=== PATIENT | female | born 2000 | race American Indian/Alaskan Native ===

== ENCOUNTER 2024-12-23 09:37 | Outpatient (AMB) | payer OTHER, SELFPAY ==
--- NOTE | 2024-12-23 09:40 | MHC.PC.OV ---
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 // PE Request Intake Note: patient here for new patient visit Train System Operator Required: Yes Train System Operator Language: Sales Operations Associate Name: kelley veloz [id number] Information Interpreted: non-clinical & clinical Is last menstrual period known: Yes Last menstrual period: 12/14/24 Post menopausal: No Patient : No Allergies No Known Allergies Allergy (Verified 12/23/24 10:00) Medication List - Last Reconciled 12/23/24 by Baljeet Chowdhury CNP No Known Home Meds Tobacco use date assessed: 12/23/24 Dental Screening Dental Screen Date: 12/23/24 Did you have a dental visit in the last 12 months?: Yes Did you have a dental problem in the last 6 months where you did not have access to dental care?: No Was dental information given to patient?: Patient has dentist HPI HPI Comments History of Present Illness Details 24-year-old Citizen Of [place]-speaking female presents to [facility]. She is not on prescription medication. Prior PCP? - Does not recall name/practice Last office visit/CPE/labs - 2-3 years Acute issue(s) - Reports anxiety symptoms which have been ongoing for the past 5 to 6 years. She feels like she wants to do things and then become anxious about doing those things. Her symptoms have been well controlled the past 1 year. She denies history of psychotropic medications and notes history of psychotherapy. He requests medication treatment for anxiety. No depressive symptoms. Past Medical History - Anxiety Surgical History - None Family History - Mom: Diabetes, substance abuse Social History - Nonsmoker. Does not vape. Does not drink alcohol. Denies recreational drug use - Generally makes unhealthy dietary choices. Active but does not exercise. Difficulty falling and staying asleep, sleep an average of 5-6 hours nightly - She is sexually active, in a monogamous relationship, and has concern for STDs. Denies acute signs and symptoms Health maintenance - Last eye exam was 3 years ago. Referred to Ophthalmology for routine eye exam - Last dental visit was 3 months ago - Last tetanus vaccine was 2 years ago. Record not currently available - Has not been vaccinated for the flu this season; declines vaccination - Last pap smear test was 4 years ago: normal. Referred to [facility] it application support analyst for a pap smear test Specialists None Interpretation by a professional wire rope sales representative via telephone. [facility] Family History (Updated 12/23/24 @ 09:55 by Heather Jurado MA) Mother Diabetes Other Substance abuse Social History Housing: House Patient Tobacco Use Status: Never used Tobacco e-Cigarette/Vaping Use: Never Used Second Hand Smoke Exposure: No service: No Current occupational status: employed Current occupation: [employer] Current occupational exposures/hazards: No Cognitive needs: No Hearing needs: No Vision needs: No Female Reproductive History Menstrual Date of last menstrual period: 12/14/24 Questionnaire PHQ-9 Over the last 2 weeks, how often have you been bothered by any of the following problems? 1. Little interest or pleasure in doing things: not at all 2. Feeling down, depressed, or hopeless: not at all 3. Trouble falling or staying asleep, or sleeping too much: several days 4. Feeling tired or having little energy: nearly every day 5. Poor appetite or overeating: nearly every day 6. Feeling bad about yourself - or that you are a failure or have let yourself or your family down: not at all 7. Trouble concentrating on things, such as reading the newspaper or watching television: not at all 8. Moving or speaking so slowly that other people could have noticed. Or the opposite - being so fidgety or restless that you have been moving around a lot more than usual: not at all 9. Thoughts that you would be better off or of hurting yourself in some way: not at all Total score: 7 Depression Screening Interpretation: Positive Depression Screening Follow-up: Existing condition and New Medication prescribed Depression Screening Done: Yes 79820 - PHQ-9 Billing: Yes Source: Developed by Drs. Ehsan Urena, Maude Foote, Bret Calhoun and colleagues, with an educational dhaavl from [employer]. Thrive Questionnaire Date Thrive assessed: 12/23/24 I am a: Patient What is your living situation today?: I have a steady place to live Within the past 12 months, did the food you bought not last and you didn't have the money to get more?: I choose not to answer this question Within the past 12 months, did you worry whether your food would run out before you got money to buy more?: I choose not to answer this question Do you have trouble paying for medicines?: Yes Do you have trouble getting transportation to medical appointments?: No Do you have trouble paying your heating and electricity bill?: I choose not to answer this question Do you have trouble taking care of your child, family member or friend?: No Do you have trouble with day-to-day activities such as bathing, preparing meals, shopping, managing finances, etc.?: No Are you currently unemployed and looking for a job?: No Are you interested in more education?: Yes Please select the resources that you would like help with: None Currently or been in a relationship where the following occur: I choose not to answer THRIVE Score: 0 AUDIT C Alcohol Use Questionnaire (AUDIT-C) 1. How often do you have a drink containing alcohol?: Never Total Score: 0 Score Reviewed/Action Taken: Yes MARIA LUISA-7 AMB Questionnaire MARIA LUISA-7 Date MARIA LUISA - 7 assessed: 12/23/24 Feeling nervous, anxious, or on edge: 3 = Nearly every day Not being able to stop or control worryin = Several days Worrying too much about different things: 3 = Nearly every day Trouble relaxin = Several days Being so restless that it is hard to sit still: 0 = Not at all Becoming easily annoyed or irritable: 0 = Not at all Feeling afraid as if something awful might happen: 0 = Not at all Total MARIA LUISA-7 score (0-4 normal; 5-9 mild; 10-14 moderate; 15-21 severe): 8 Source: Developed by Drs. Ehsan Urena, Maude Foote, Bret Calhoun and colleagues, with an educational dhaval from [employer]. MARIA LUISA-7 Assessment Billing MARIA LUISA-7 Assessment Tool: MARIA LUISA-7 Assessment 70917 Review of Systems Const Details: Denies chills, Denies fatigue, Denies fever(s), Denies headache(s) and Denies weakness HEENT Denies change in vision, Denies dizziness, Denies headache(s), Denies hearing loss, Denies nasal congestion, Denies sinus pain, Denies sinus pressure and Denies sore throat Card Denies chest pain, Denies lightheadedness, Denies dyspnea and Denies other (palpitations) Resp Denies cough, Denies dyspnea and Denies wheezing GI Denies abdominal pain, Denies melena, Denies hematochezia, Denies change in bowel habits, Denies dyspepsia and Denies nausea Denies hematuria and Denies dysuria Musc Denies abnormal gait, Denies myalgias, Denies arthralgias, Denies numbness and Denies tingling Skin/Breast Denies rash, Denies unusual bruising and Denies wounds Neuro Denies abnormal gait, Denies dizziness, Denies headache(s), Denies memory loss, Denies numbness, Denies Sensory deficit (Neuro), Denies tingling and Denies weakness Psych Reports anxiety, Denies depression and Denies memory loss Endo Denies cold intolerance, Denies fatigue, Denies heat intolerance, Denies polydipsia and Denies polyuria New/Lymph Denies easy bleeding and Denies easy bruising Aller/Immun Denies wheezing Physical exam (Primary Care) Vital Signs: Last Vital Signs Temp 98.5 F 12/23/24 09:48 Pulse 68 12/23/24 09:48 Resp 16 12/23/24 09:48 BP 102/66 12/23/24 09:48 Pulse Ox 98 12/23/24 09:48 Oxygen Delivery Method Room Air 12/23/24 09:48 BMI result Body Mass Index 25.7 Tobacco/Smoking Status: Tobacco use Status Tobacco use date assessed 12/23/24 12/23/24 09:48 Patient Tobacco Use Status Never used Tobacco 12/23/24 09:48 e-Cigarette/Vaping Use Never Used 12/23/24 09:48 PHQ-9: PHQ-9 Score PHQ-9: Total score 7 12/23/24 10:20 Depression Screening Interpretation: Positive Depression Screening Follow-up: Existing condition and New Medication prescribed Thrive Assessment: Date of Thrive Assessment Date Thrive assessed 12/23/24 12/23/24 09:44 Currently or been in a relationship where the following occur: I choose not to answer Const Other: General: no acute distress, well developed, alert and awake Nutritional Appearance: well nourished Orientation/consciousness: patient oriented x3 HENMT Head: Yes normocephalic and Yes atraumatic Ears: hearing grossly normal bilaterally and TM's normal bilaterally General nose exam: Normal external nose present and Normal nares present Mouth: Normal oral and palatal mucosa present and moist mucous membranes Teeth and gingiva: dentition normal Throat: Yes oropharynx normal Eyes Pupils: Equal, round and reactive pupils present and Pupil accommodation reflex normal EOM: EOMs intact bilaterally Neck Neck: Yes normal visual inspection, Yes no lymphadenopathy and Yes trachea midline Thyroid: Thyroid normal Carotids: no bruits Lymphatic: no lymphadenopathy noted Chest Chest palpation & inspection: normal inspection of the chest Resp Effort & Inspection: normal respiratory effort Auscultation: clear to auscultation bilaterally Cardio Rate: regular rate Rhythm: regular rhythm Heart sounds: S1 normal heart sound present, S2 normal heart sound present, no gallops, no murmurs and no rubs Bruits: no abdominal aortic bruits and no carotid bruits GI Palpation (GI): No Abdominal aortic bruit present, Soft to palpation, nontender, No hepatosplenomegaly present and No Rebound tenderness present Auscultation: normal bowel sounds General: Yes no CVA tenderness Back/Spine/Pelvis Back: no CVA tenderness Cervical Spine: cervical ROM normal and No Cervical spine tenderness Thoracic/Lumbar Spine: thoraco-lumbar ROM normal, No pain with thoraco-lumbar ROM, No thoracic spinal tenderness and No lumbar spinal tenderness Skin General: warm and dry. Normal skin color. Normal skin turgor Lesions: no lesions Rashes: no rashes Trauma: no lacerations or abrasions Wounds: no wounds Nails: normal Neuro General: patient oriented x3, gait normal and CN's II-XI intact bilaterally Cranial nerves: Yes Equal, round and reactive pupils present Cognition (Neuro): normal cognition Gait exam (Neuro): Normal gait present Motor exam (neuro): 5/5 motor strength present throughout Sensory Exam: No Sensory deficit (Neuro) Deep tendon reflexes (DTR's): Right patellar reflex intensity grade: 2+ and Left patellar reflex intensity grade: 2+ Extrem General: Yes normal to inspection, No edema and No calf tenderness Psych Appearance: grossly normal Affect: normal affect Attitude: cooperative Thought process: Normal thought process present Coding Level of Care Code New Pt Level 4 (86093) New Pt Prev Care 18-39yr(77291 Diagnoses Normal physical examination, routine Z00.00 Anxiety F41.9 Sleep disturbance G47.9 Screen for STD (sexually transmitted disease) Z11.3 Pap smear for cervical cancer screening Z12.4 Eye exam, routine Z01.00 Laboratory tests ordered as part of a complete physical exam (CPE) Z00.00 Additional Codes MARIA LUISA-7 Assessment Billing - MARIA LUISA-7 Assessment Tool: MARIA LUISA-7 Assessment 85480 ([id number]) PHQ-9 - 56473 - PHQ-9 Billing: Yes ([id number]) Assessment & Plan Assessment & Plan (1) Normal physical examination, routine: Code(s): Z00.00 - Encounter for general adult medical examination without abnormal findings Category: Medical Plan: No significant functional limitation noted. Continue current treatment regimen. Healthy diet and routine exercise encouraged. Follow-up in 1 month for anxiety and labs reviewed. Return sooner with symptoms or concerns. Verbalized understanding and agreed with the treatment plan (2) Anxiety: Code(s): F41.9 - Anxiety disorder, unspecified Category: Medical Plan: Reports anxiety symptoms which have been ongoing for the past 5 to 6 years. She feels like she wants to do things and then become anxious about doing those things. Her symptoms have been well controlled the past 1 year. She denies history of psychotropic medications and notes history of psychotherapy. He requests medication treatment for anxiety. No depressive symptoms. She has trouble falling in staying asleep asleep and average of 5-6 hours nightly. MARIA LUISA-7 in PHQ-9 scores revealed mild anxiety and depression. Will start hydroxyzine 25 mg 3 times daily as needed to target anxiety and sleep disturbance; advised to take as prescribed. May take 50 mg at bedtime for sleep, if skip 1 or 2 doses during the day. Instructed on the risks, benefits, and potential adverse reactions of the medication. Routine exercise encouraged. Follow-up in 1 month or sooner with worsening or new symptoms. Verbalized understanding and agreed with the plan. (3) Sleep disturbance: Code(s): G47.9 - Sleep disorder, unspecified Category: Medical Plan: Plan as above. (4) Screen for STD (sexually transmitted disease): Code(s): Z11.3 - Encounter for screening for infections with a predominantly sexual mode of transmission Category: Medical Plan: She is sexually active, in a monogamous relationship, and has concern for STDs. Denies acute signs and symptoms. Labs ordered for STD screening. (5) Pap smear for cervical cancer screening: Code(s): Z12.4 - Encounter for screening for malignant neoplasm of cervix Category: Medical Plan: Last pap smear test was 4 years ago: normal. Referred to [facility] it application support analyst for a pap smear test. (6) Eye exam, routine: Code(s): Z01.00 - Encounter for examination of eyes and vision without abnormal findings Category: Medical Plan: Last eye exam was 3 years ago. Referred to Ophthalmology for routine eye exam. (7) Laboratory tests ordered as part of a complete physical exam (CPE): Code(s): Z00.00 - Encounter for general adult medical examination without abnormal findings Category: Medical Plan: Fasting labs ordered as part of a complete physical exam. Advised to fast for at least 10 hours before getting labs drawn. May drink water Verbalized understanding and agreed with treatment plan. Orders: Orders Comprehensive [place]. Panel Fast Today Z00.00 - Encounter for general adult medical examination without abnormal findings Syphilis Screen Today Z11.3 - Encounter for screening for infections with a predominantly sexual mode of transmission HIV Ab/Ag Today Z11.3 - Encounter for screening for infections with a predominantly sexual mode of transmission Complete Blood Count Auto Diff Today Z00.00 - Encounter for general adult medical examination without abnormal findings Lipid Panel Today Z00.00 - Encounter for general adult medical examination without abnormal findings Microalbumin, Random (w Creat) Today Z00.00 - Encounter for general adult medical examination without abnormal findings TSH reflex Free T4 Today Z00.00 - Encounter for general adult medical examination without abnormal findings UA CC w/rflx Micro + Cult Today Z00.00 - Encounter for general adult medical examination without abnormal findings Vitamin D 25-OH Total Today Z00.00 - Encounter for general adult medical examination without abnormal findings CT NG by PCR Today Z11.3 - Encounter for screening for infections with a predominantly sexual mode of transmission Hepatitis B,C Profile Today Z11.3 - Encounter for screening for infections with a predominantly sexual mode of transmission Referrals [employer]IAL [employer]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
[2024-12-23 09:48] VITALS: BP 102/66; PULSE 68; RESP 16; TEMP 36.9; O2SAT 98; BMI 25.7
--- OUTSIDE RECORDS SUMMARY | 2024-12-23 10:32 | XMS_ITS | Encounter Summary ---
Author Organization [employer] Address [address] [place] [address] [address] [place] [address] Care Team Providers Care Principal Process Engineer Name Role Phone Unavailable Primary Care Provider Unavailabl e Encounter Details Date Type Department Care Team (Latest Contact Info) Description 12/06/[address] [facility] CONVERSIONS Dental, Provider, DDS Social History Tobacco Use Types Packs/Day Years Used Date Smoking Tobacco: Never Assessed Comments Unknown Sex and Gender Information Value Date Recorded Sex Assigned at Female 05/08/2022 10:33 AM EDT Legal Sex Female 10:33 AM EDT Gender Identity Female 05/08/2022 10:33 AM EDT Sexual Orientation Choose not to disclose 2021 10:33 AM EDT documented as of this encounter Plan of Treatment Not on file documented as of this encounter Visit Diagnoses Not on filedocumented in this encounter
== END 2024-12-23 10:35 | disposition home or self-care (01) ==
LOC: HO.HMCFM 09:38
PROVIDERS: PCP Nurse Practitioner Family; Visit Provider Nurse Practitioner Family
DX: Z00.00 Encounter for general adult medical examination without abnormal findings (principal); F41.9 Anxiety disorder, unspecified; G47.9 Sleep disorder, unspecified; Z11.3 Encounter for screening for infections with a predominantly sexual mode of transmission

== ENCOUNTER 2024-12-23 09:37 | Outpatient (REF) | payer OTHER, SELFPAY ==
[2024-12-23 14:13] LABS: Appearance Urine Turbid; Color Urine Yellow; Glucose Urine UA Negative (Negative); Leukocyte Esterase Urine Negative (Negative); Nitrite Urine Negative (Negative); PH 5.5 (5.0-9.0); Specific Gravity - Urine 1.025 (1.005-1.025); Urine Blood Negative (Negative); Urine Ketones Trace mg/dL (Negative); Urine Protein Negative (Neg-Trace)
[2024-12-23 14:30] LABS: MANUAL DIFF FLAG NO
[2024-12-23 14:34] LABS: Basophils Percent Auto 0.6 % (0-2); Eosinophils Absolute Auto 0.2 X10*3/uL (0.0-0.4); Eosinophils Percent Auto 2.4 % (0-4); Hematocrit 40.3 % (37.0-47.0); Hemoglobin 13.6 g/dl (12.0-16.0); Imm Gran Abs Auto 0.02 X10*3/uL (0.00-0.03); Imm Gran Pct Auto 0.3 % (0.0-0.4); Lymphocytes Absolute Auto 1.4 X10*3/uL (1.2-4.9); Lymphocytes Percent Auto 20.3 % (20-40); Mean Corpuscular HGB Conc 33.7 g/dl (31.0-35.0); Mean Corpuscular Hemoglobin 30.4 pg (27.0-33.0); Monocytes Absolute Auto 0.4 X10*3/uL (0.1-1.2); Monocytes Percent Auto 5.6 % (2-11); Neutrophils Percent Auto 70.8 % (45-73); Platelet Count 271 X10*3/uL (160-400); Red Blood Count 4.48 X10*6/uL (4.20-5.50); Red Cell Distribution Width 12.6 % (11.0-16.0)
[2024-12-23 14:50] LABS: Alanine Aminotransferase 18 U/L (0-31); Alkaline Phosphatase 92 U/L (39-117); Anion Gap 13 (12-20); Aspartate Amino Transferase 24 U/L (5-31); Bilirubin Total 0.5 mg/dL (0.0-1.0); Blood Urea Nitrogen 12 mg/dL (9-16); Calcium 9.6 mg/dL (8.4-10.2); Carbon Dioxide 25 mmol/L (22-29); Chloride 107 mmol/L (96-108); Cholesterol 186 mg/dL (<200); Estimated Glomerular Filt Rate > 60; Glucose Fasting 75 mg/dL (60-99); HDL Cholesterol 42 mg/dL (>40); LDL Cholesterol Calculated 119 mg/dL (<100); Potassium 3.7 mmol/L (3.3-5.1); Sodium 141 mmol/L (135-145); Total Protein 7.6 g/dL (6.5-8.0); Triglycerides 128 mg/dL (<150)
[2024-12-23 14:57] LABS: Creatinine Urine 267.79 mg/dL; Microalbum/Creatinine Ratio Ur 5.6 ug/mg cr (<30)
[2024-12-23 15:05] LABS: TSH reflex Free T4 1.42 uIU/mL (0.32-4.0); Vitamin D 25-OH Total 41.8 ng/mL (>30)
[2024-12-24 02:54] LABS: Syphilis Screen Nonreactive (Nonreactive)
[2024-12-24 06:05] LABS: HBS Num1 > 1000.00 mIU/mL (0-7.99); HBc Num1 0.19 S/CO (0.00-0.79); HBsAGNum1 0.39 S/CO (0.00-0.99); HIV AB/AG Nonreactive (Nonreactive); HIV Num 1 0.07 S/CO (0.00-0.99); Hepatitis B Core Antibody Nonreactive (Nonreactive); Hepatitis B Surface Antigen Negative (Negative); ~HepC Num1 0.29 S/CO (0.00-0.79); ~Hepatitis B Surface Antibody REACTIVE (Nonreactive); ~Hepatitis C Antibody Nonreactive (Nonreactive)
== END 2024-12-23 09:38 | disposition home or self-care (01) ==
LOC: HO.WFDLDS 09:37
PROVIDERS: PCP Nurse Practitioner Family; Visit Provider Nurse Practitioner Family
DX: Z00.01 Encounter for general adult medical examination with abnormal findings (principal); Z11.3 Encounter for screening for infections with a predominantly sexual mode of transmission; Z11.4 Encounter for screening for human immunodeficiency virus [HIV]; F41.9 Anxiety disorder, unspecified; G47.9 Sleep disorder, unspecified
CPT/HCPCS: 36415; 80053; 80061; 81003; 82043; 82306; 82570; 84443; 85025; 86704; 86706; 86780; 86803; 87340; 87389; 96127; 99202; 99385

== ENCOUNTER 2025-01-23 09:51 | Outpatient (AMB) | payer OTHER, SELFPAY ==
--- NOTE | 2025-01-23 09:53 | A.OFFPC_ITS ---
Vital Signs 01/23/25 09:58 Height 5 ft Weight 130 lb 4 oz BMI 25.4 BP 110/61 Blood Pressure Location Lt brachial Position Sitting Respiration 16 Pulse 68 Pulse Source Pulse Oximeter Temp 98.2 F Temp Source Oral Pulse Oximetry (%) 99 Oxygen Delivery Method Room Air Intake Visit Reasons: 1 mos anxiety, labs review Intake Note: patient here for 1 month follow up on anxiety and lab review Senior Sql Dba Required: Yes Senior Sql Dba Language: Sausage Stuffer Name: chago Leo Information Interpreted: non-clinical & clinical Is last menstrual period known: Yes Last menstrual period: 01/10/25 Post menopausal: No Patient : No Allergies No Known Allergies Allergy (Verified 01/23/25 10:10) Medication List - Last Reconciled 01/23/25 by Baljeet Chowdhury CNP hydroxyzine HCl 25 mg PO TID PRN Tobacco use date assessed: 01/23/25 Dental Screening Dental Screen Date: 01/23/25 Did you have a dental visit in the last 12 months?: Yes Did you have a dental problem in the last 6 months where you did not have access to dental care?: No Was dental information given to patient?: Patient has dentist HPI HPI Comments History of Present Illness Details 24-year-old Cameroonian-speaking female pres ents for anxiety and recent labs review follow-up. She admits to taking hydroxyzine as prescribed without adverse reactions. She reports controlled anxiety symptoms. She offers no complaints and denies acute symptoms at this time. Interpretation by a professional marketing researcher via electronic tablet. 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 1. Little interest or pleasure in doing things: not at all 2. Feeling down, depressed, or hopeless: not at all 3. Trouble falling or staying asleep, or sleeping too much: not at all 4. Feeling tired or having little energy: not at all 5. Poor appetite or overeating: not at all 6. Feeling bad about yourself - or that you are a failure or have let yourself or your family down: not at all 7. Trouble concentrating on things, such as reading the newspaper or watching television: not at all 8. Moving or speaking so slowly that other people could have noticed. Or the opposite - being so fidgety or restless that you have been moving around a lot more than usual: not at all 9. Thoughts that you would be better off or of hurting yourself in some way: not at all Total score: 0 Depression Screening Interpretation: Negative Depression Screening Done: Yes 60584 - PHQ-9 Billing: Yes Source: Developed by Drs. Ehsan Urena, Maude Foote, Bret Calhoun and colleagues, with an educational dhaval from [employer]. Thrive Questionnaire Date Thrive assessed: 12/23/24 I am a: Patient What is your living situation today?: I have a steady place to live Within the past 12 months, did the food you bought not last and you didn't have the money to get more?: I choose not to answer this question Within the past 12 months, did you worry whether your food would run out before you got money to buy more?: I choose not to answer this question Do you have trouble paying for medicines?: Yes Do you have trouble getting transportation to medical appointments?: No Do you have trouble paying your heating and electricity bill?: I choose not to answer this question Do you have trouble taking care of your child, family member or friend?: No Do you have trouble with day-to-day activities such as bathing, preparing meals, shopping, managing finances, etc.?: No Are you currently unemployed and looking for a job?: No Are you interested in more education?: Yes Please select the resources that you would like help with: None Currently or been in a relationship where the following occur: I choose not to answer THRIVE Score: 0 MARIA LUISA-7 AMB Questionnaire MARIA LUISA-7 Date MARIA LUISA - 7 assessed: 01/23/25 Feeling nervous, anxious, or on edge: 0 = Not at all Not being able to stop or control worryin = Not at all Worrying too much about different things: 0 = Not at all Trouble relaxin = Not at all Being so restless that it is hard to sit still: 0 = Not at all Becoming easily annoyed or irritable: 0 = Not at all Feeling afraid as if something awful might happen: 0 = Not at all Total MARIA LUISA-7 score (0-4 normal; 5-9 mild; 10-14 moderate; 15-21 severe): 0 Source: Developed by Drs. Ehsan Urena, Maude Foote, Bret Calhoun and colleagues, with an educational dhaval from [employer]. MARIA LUISA-7 Assessment Billing MARIA LUISA-7 Assessment Tool: MARIA LUISA-7 Assessment 73765 Review of Systems Const Details: Const Denies chills, Denies fatigue, Denies fever(s), Denies headache(s) and Denies weakness ENT Denies dizziness and Denies headache(s) Card Denies chest pain, Denies lightheadedness, Denies dyspnea and Denies other (Palpitations) Resp Denies cough, Denies dyspnea, Denies wheezing and Denies other ( shortness of breath) GI Denies abdominal pain, Denies melena, Denies hematochezia, Denies change in bowel habits, Denies dyspepsia and Denies nausea Denies hematuria and Denies dysuria Musc Denies abnormal gait, Denies myalgias, Denies arthralgias, Denies numbness and Denies tingling Skin/Breast Denies rash, Denies unusual bruising and Denies wounds Neuro Denies abnormal gait, Denies dizziness, Denies headache(s), Denies memory loss, Denies numbness, Denies Sensory deficit (Neuro), Denies tingling and Denies weakness Psych Denies anxiety, Denies depression, Denies memory loss Endo Denies cold intolerance, Denies fatigue, Denies heat intolerance, Denies polydipsia and Denies polyuria Aller/Immun Denies wheezing Physical exam (Primary Care) Vital Signs: Last Vital Signs Temp 98.2 F 01/23/25 09:58 Pulse 68 01/23/25 09:58 Resp 16 01/23/25 09:58 BP 110/61 01/23/25 09:58 Pulse Ox 99 01/23/25 09:58 Oxygen Delivery Method Room Air 01/23/25 09:58 BMI result Body Mass Index 25.4 Tobacco/Smoking Status: Tobacco use Status Tobacco use date assessed 01/23/25 01/23/25 10:02 Patient Tobacco Use Status Never used Tobacco 01/23/25 09:56 e-Cigarette/Vaping Use Never Used 01/23/25 09:56 PHQ-9: PHQ-9 Score PHQ-9: Total score 0 01/23/25 10:05 Depression Screening Interpretation: Negative Thrive Assessment: Date of Thrive Assessment Date Thrive assessed 12/23/24 01/23/25 09:56 Currently or been in a relationship where the following occur: I choose not to answer Const Other: General: no acute distress and well developed Nutritional Appearance: well nourished Orientation/consciousness: patient oriented x3 HENMT Head: Yes normocephalic and Yes atraumatic Eyes General: appearance normal, both eyes and all related structures Pupils: Equal, round and reactive pupils present EOM: EOMs intact bilaterally Resp Effort & Inspection: normal respiratory effort Auscultation: clear to auscultation bilaterally Cardio Rate: regular rate Rhythm: regular rhythm Heart sounds: S1 normal heart sound present, S2 normal heart sound present, no gallops, no murmurs and no rubs GI Palpation (GI): No Abdominal aortic bruit present, Soft to palpation, nontender, No hepatosplenomegaly present and No Rebound tenderness present Auscultation: normal bowel sounds General: Yes no CVA tenderness Back/Spine/Pelvis Back: no CVA tenderness Cervical Spine: cervical ROM normal and No Cervical spine tenderness Thoracic/Lumbar Spine: thoraco-lumbar ROM normal, No pain with thoraco-lumbar ROM, No thoracic spinal tenderness and No lumbar spinal tenderness Extrem General: Yes normal to inspection, No edema and No calf tenderness Skin General: warm and dry. Normal skin color. Normal skin turgor Neuro General: patient oriented x3, gait normal and no focal neuro deficit Cranial nerves: Yes Equal, round and reactive pupils present Cognition (Neuro): normal cognition Gait exam (Neuro): Normal gait present Sensory Exam: No Sensory deficit (Neuro) Psych Appearance: grossly normal Affect: normal affect Attitude: cooperative Thought process: Normal thought process present Coding Level of Care Code Est Pt Level 3 (87803) Diagnoses Anxiety F41.9 Elevated LDL cholesterol level E78.00 Additional Codes MARIA LUISA-7 Assessment Billing - MARIA LUISA-7 Assessment Tool: MARIA LUISA-7 Assessment 00752 ([id number]) PHQ-9 - 72135 - PHQ-9 Billing: Yes ([id number]) Assessment & Plan Assessment & Plan (1) Anxiety: Code(s): F41.9 - Anxiety disorder, unspecified Category: Medical Plan: Reports controlled anxiety symptoms. PHQ-9 and MARIA LUISA-7 scores are normal. Continue current treatment regimen. Routine exercise encouraged. Follow-up in 3 months or sooner with worsening or new symptoms. Verbalized understanding and agreed with treatment plan. (2) Elevated LDL cholesterol level: Code(s): E78.00 - Pure hypercholesterolemia, unspecified Category: Medical Plan: Recent LDL level is slightly elevated, 119. Triglycerides, total cholesterol, and HDL levels are normal. Advised to limit foods high in saturated fat and avoid foods high in trans fat. Routine exercise encouraged. Will monitor lipid panel level annually or if present with related symptoms or concerns. Verbalized understanding and agreed with the plan.
[2025-01-23 09:58] VITALS: BP 110/61; PULSE 68; RESP 16; TEMP 36.8; O2SAT 99; BMI 25.4
--- OUTSIDE RECORDS SUMMARY | 2025-01-23 10:03 | XMS_ITS | Encounter Summary ---
Author Organization [employer] Address [address] [place] [address] [address] [place] [address] Care Team Providers Care Monorail Car Operator Name Role Phone Unavailable Primary Care Provider Unavailabl e Encounter Details Date Type Department Care Team (Latest Contact Info) Description 12/06/2018 Abstract [facility] CONVERSIONS Dental, Provider, DDS Social History Tobacco [...]
== END 2025-01-23 10:23 | disposition home or self-care (01) ==
LOC: HO.HMCFM 09:52
PROVIDERS: PCP Nurse Practitioner Family; Visit Provider Nurse Practitioner Family
DX: F41.9 Anxiety disorder, unspecified (principal); E78.00 Pure hypercholesterolemia, unspecified

== ENCOUNTER → 2025-01-23 09:51 | Outpatient (BNVA) | payer OTHER, SELFPAY | PROVIDERS: PCP Nurse Practitioner Family; Visit Provider Nurse Practitioner Family | DX: F41.9 Anxiety disorder, unspecified (principal); E78.00 Pure hypercholesterolemia, unspecified; Z13.31 Encounter for screening for depression; Z13.39 Encounter for screening examination for other mental health and behavioral disorders | CPT/HCPCS: 96127; 99212 ==

== ENCOUNTER 2025-04-27 09:20 | Outpatient (AMB) | payer OTHER, SELFPAY ==
--- NOTE | 2025-04-27 09:21 | MHC.PC.OV ---
Vital Signs 04/27/25 09:25 Height 5 ft Weight 128 lb BMI 25.0 BP 113/71 Blood Pressure Location Rt brachial Position Sitting Respiration 16 Pulse 69 Pulse Source Pulse Oximeter Temp 97.8 F Temp Source Oral Pulse Oximetry (%) 99 Oxygen Delivery Method Room Air Intake Visit Reasons: 3 mos anxiety Intake Note: patient here for 3 month follow up on anxiety Fixed Route Operator Required: No Is last menstrual period known: Yes Last menstrual period: 04/26/25 Post menopausal: No Patient : No Allergies No Known Allergies Allergy (Verified 04/27/25 09:24) Tobacco use date assessed: 04/27/25 Dental Screening Dental Screen Date: 04/27/25 Did you have a dental visit in the last 12 months?: Yes Did you have a dental problem in the last 6 months where you did not have access to dental care?: No Was dental information given to patient?: Patient has dentist HPI HPI Comments History of Present Illness Details 25-year-old female presents for anxiety follow-up. She is mostly Tunisian speaking. She admits to taking hydroxyzine as prescribed without adverse reactions. She reports controlled anxiety symptoms. She reports severe abdominal pain at the beginning of her menstrual cycle. No acute symptoms at this time. 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 1. Little interest or pleasure in doing things: not at all 2. Feeling down, depressed, or hopeless: not at all 3. Trouble falling or staying asleep, or sleeping too much: more than half the days 4. Feeling tired or having little energy: more than half the days 5. Poor appetite or overeating: not at all 6. Feeling bad about yourself - or that you are a failure or have let yourself or your family down: not at all 7. Trouble concentrating on things, such as reading the newspaper or watching television: not at all 8. Moving or speaking so slowly that other people could have noticed. Or the opposite - being so fidgety or restless that you have been moving around a lot more than usual: not at all 9. Thoughts that you would be better off or of hurting yourself in some way: not at all Total score: 4 Depression Screening Interpretation: Negative Depression Screening Done: Yes 02413 - PHQ-9 Billing: Yes Source: Developed by Drs. Ehsan Urena, Maude Foote, Bret Calhoun and colleagues, with an educational dhaval from [employer]. Thrive Questionnaire Date Thrive assessed: 12/23/24 I am a: Patient What is your living situation today?: I have a steady place to live Within the past 12 months, did the food you bought not last and you didn't have the money to get more?: I choose not to answer this question Within the past 12 months, did you worry whether your food would run out before you got money to buy more?: I choose not to answer this question Do you have trouble paying for medicines?: Yes Do you have trouble getting transportation to medical appointments?: No Do you have trouble paying your heating and electricity bill?: I choose not to answer this question Do you have trouble taking care of your child, family member or friend?: No Do you have trouble with day-to-day activities such as bathing, preparing meals, shopping, managing finances, etc.?: No Are you currently unemployed and looking for a job?: No Are you interested in more education?: Yes Please select the resources that you would like help with: None Currently or been in a relationship where the following occur: I choose not to answer THRIVE Score: 0 AUDIT C Alcohol Use Questionnaire (AUDIT-C) 3. How often do you have six or more drinks on one occasion?: Never Total Score: 0 MARIA LUISA-7 AMB Questionnaire MARIA LUISA-7 Date MARIA LUISA - 7 assessed: 04/27/25 Feeling nervous, anxious, or on edge: 0 = Not at all Not being able to stop or control worryin = Not at all Worrying too much about different things: 0 = Not at all Trouble relaxin = Not at all Being so restless that it is hard to sit still: 0 = Not at all Becoming easily annoyed or irritable: 0 = Not at all Feeling afraid as if something awful might happen: 0 = Not at all Total MARIA LUISA-7 score (0-4 normal; 5-9 mild; 10-14 moderate; 15-21 severe): 0 Source: Developed by Drs. Ehsan Urena, Maude Foote, Bret Calhoun and colleagues, with an educational dhaval from [employer]. MARIA LUISA-7 Assessment Billing MARIA LUISA-7 Assessment Tool: MARIA LUISA-7 Assessment 73524 Review of Systems Const Details: Const Denies chills, Denies fatigue, Denies fever(s), Denies headache(s) and Denies weakness ENT Denies dizziness and Denies headache(s) Card Denies chest pain, Denies lightheadedness, Denies dyspnea and Denies other (Palpitations) Resp Denies cough, Denies dyspnea, Denies wheezing and Denies other ( shortness of breath) GI Denies abdominal pain, Denies melena, Denies hematochezia, Denies change in bowel habits, Denies dyspepsia and Denies nausea Denies hematuria and Denies dysuria Musc Denies abnormal gait, Denies myalgias, Denies arthralgias, Denies numbness and Denies tingling Skin/Breast Denies rash, Denies unusual bruising and Denies wounds Neuro Denies abnormal gait, Denies dizziness, Denies headache(s), Denies memory loss, Denies numbness, Denies Sensory deficit (Neuro), Denies tingling and Denies weakness Psych Denies anxiety, Denies depression, Denies memory loss Endo Denies cold intolerance, Denies fatigue, Denies heat intolerance, Denies polydipsia and Denies polyuria Aller/Immun Denies wheezing Physical exam (Primary Care) Tobacco/Smoking Status: Tobacco use Status Tobacco use date assessed 01/23/25 04/27/25 09:23 Patient Tobacco Use Status Never used Tobacco 04/27/25 09:23 e-Cigarette/Vaping Use Never Used 04/27/25 09:23 Depression Screening Interpretation: Negative Thrive Assessment: Date of Thrive Assessment Date Thrive assessed 12/23/24 04/27/25 09:23 Currently or been in a relationship where the following occur: I choose not to answer Const Other: General: no acute distress and well developed Nutritional Appearance: well nourished Orientation/consciousness: patient oriented x3 [facility]: Yes normocephalic and Yes atraumatic Eyes General: appearance normal, both eyes and all related structures Pupils: Equal, round and reactive pupils present EOM: EOMs intact bilaterally Resp Effort & Inspection: normal respiratory effort Auscultation: clear to auscultation bilaterally Cardio Rate: regular rate Rhythm: regular rhythm Heart sounds: S1 normal heart sound present, S2 normal heart sound present, no gallops, no murmurs and no rubs GI Palpation (GI): No Abdominal aortic bruit present, Soft to palpation, nontender, No hepatosplenomegaly present and No Rebound tenderness present Auscultation: normal bowel sounds General: Yes no CVA tenderness Back/Spine/Pelvis Back: no CVA tenderness Cervical Spine: cervical ROM normal and No Cervical spine tenderness Thoracic/Lumbar Spine: thoraco-lumbar ROM normal, No pain with thoraco-lumbar ROM, No thoracic spinal tenderness and No lumbar spinal tenderness Extrem General: Yes normal to inspection, No edema and No calf tenderness Skin General: warm and dry. Normal skin color. Normal skin turgor Neuro General: patient oriented x3, gait normal and no focal neuro deficit Cranial nerves: Yes Equal, round and reactive pupils present Cognition (Neuro): normal cognition Gait exam (Neuro): Normal gait present Sensory Exam: No Sensory deficit (Neuro) Psych Appearance: grossly normal Affect: normal affect Attitude: cooperative Thought process: Normal thought process present Coding Level of Care Code Est Pt Level 3 (17978) Diagnoses Anxiety F41.9 Menstrual pain N94.6 Additional Codes MARIA LUISA-7 Assessment Billing - MARIA LUISA-7 Assessment Tool: MARIA LUISA-7 Assessment 52910 ([id number]) PHQ-9 - 20501 - PHQ-9 Billing: Yes ([id number]) Assessment & Plan Assessment & Plan (1) Anxiety: Code(s): F41.9 - Anxiety disorder, unspecified Category: Medical Plan: Reports controlled anxiety symptoms. PHQ-9 and MARIA LUISA-7 scores are normal. Continue current treatment regimen. Routine exercise encouraged. Follow-up in 3 months or sooner with symptoms or concerns. Verbalized understanding and agreed with the plan. (2) Menstrual pain: Code(s): N94.6 - Dysmenorrhea, unspecified Category: Medical Plan: Reports severe abdominal pain at the beginning of her menstrual cycle. No acute symptoms at this time. Advised to take ibuprofen 600 mg every 6-8 hours as needed and with food. Follow-up as needed. Verbalized understanding and agreed with the plan.
[2025-04-27 09:25] VITALS: BP 113/71; PULSE 69; RESP 16; TEMP 36.6; O2SAT 99; BMI 25.0
--- OUTSIDE RECORDS SUMMARY | 2025-04-27 10:28 | XMS_ITS | Encounter Summary ---
Author Organization [employer] Address [address] [place] [address] [address] [place] [address] Care Team Providers Care Dispensary Technician Name Role Phone Unavailable Primary Care Provider Unavailabl e Encounter Details Date Type Department Care Team (Latest Contact Info) Description 12/06/2018 Abstract [facility] CONVERSIONS Dental, Provider, DDS Social History [...]
--- OUTSIDE RECORDS SUMMARY | 2025-04-27 10:29 | XMS_ITS | Encounter Summary ---
Author Organization [employer] Address [address] [facility] [address] [place] [address] Care Team Providers Care Loan Coordinator Name Role Phone Unavailable Primary Care Provider Unavailabl e Encounter Details Date Type Department Care Team (Late st Contact Info) Description 07/17/2022 Abstract [facility] [address] [place] [address] Henrique Mcguire, PAUL Social History Tobacco Use Types Packs/Day Years Used Date Smoking Tobacco: Never Assessed Comments Unknown Sex and Gender Information Value Date Recorded Sex Assigned at Female 05/08/2022 10:33 AM EDT Legal Sex Female 10:33 AM EDT Gender Identity Female 05/08/2022 10:33 AM EDT Sexual Orientation Choose not to disclose 2021 10:33 AM EDT COVID-19 Exposure Response Date Recorded In the last 10 days, have yo u been in contact with someone who was confirmed or suspected to have Coronavirus/COVID-19? No / Unsure 07/18/2022 2:04 PM EST documented as of this encounter Plan of Treatment Not on file documented as of this encounter Procedures Procedure Name Priority Date/Time Associated Diagnosis Comments 3 O COMPOSITE FILLING Routine 08/05/2019 12:00 AM EST 2 O COMPOSITE FILLING Routine 08/05/2019 12:00 AM EST 18 O COMPOSITE FILLING Routine 9 12:00 AM EDT 19 DI COMPOSITE FILLING Routine 01/24/20 19 12:00 AM EDT 16 EXTRACTION Routine 11/13/2018 12:00 AM EDT 1 EXTRACTION Routine 09/25/2018 12:00 AM EDT 32 EXTRACTION Routine 05/07/2018 12:00 AM EDT 30 O COMPOSITE FILLING Routine 8 12:00 AM EDT 31 O COMPOSITE FILLING Routine 8 12:00 AM EDT 17 EXTRACTION Routine 01/15/2018 12:00 AM EDT documented in this encounter Visit Diagnoses Not on filedocumented in this encounter
--- OUTSIDE RECORDS SUMMARY | 2025-04-27 10:29 | XMS_ITS | Encounter Summary ---
Author Organization [email or web address] Address [address] [place] [address] 7 [place] [address] Care Team Providers Care Manager Of Recruiting Name Role Phone Unavailable Primary Care Provider Unavailabl e Encounter Details Date Type Department Care Team (Latest Contact Info) Description 07/14/2020 Abstract [facility] CONVERSIONS Dental, Provider, DDS Social History [...]
--- OUTSIDE RECORDS SUMMARY | 2025-04-27 10:29 | XMS_ITS | Clinical Summary ---
Author Organization [employer] Address [address] [place] [address] 7[address] [place] [address] Care Team Providers Care Med Surg Rn Name Role Phone Unavailable Primary Care Provider Unavailabl e Allergies No known active allergies Medications multivitamin with minerals (Centrum) 9-200 mg-mcg tablet split tablet Take 1 tablet by mouth. 04/19/2021 Active clindamycin (Clindagel) 1 % gel 11/08/2022 Active Active Problems Problem Noted Date Diagnosed Date Normal oral exam 01/30/2024 Dental plaque 11/14/2022 Social History Tobacco Use Types Packs/Day Years Used Date Smoking Tobacco: Never Smokeless Tobacco: Never Tobacco Cessation:Counseling Given: Not Answered Comments Unknown Sex and Gender Information Value Date Recorded Sex Assigned at Female 05/08/2022 10:33 AM EDT Legal Sex Female 10:33 AM EDT Gender Identity Female 05/08/2022 10:33 AM EDT Sexual Orientation Choose not to disclose 2021 10:33 AM EDT Last Filed Vital Signs Vital Sign Reading Time Taken Comments Blood Pressure 110/66 10/24/2024 3:10 PM EDT Pulse 70 01/30/2024 11:03 AM EDT Temperature - - Respiratory Rate - - Oxygen Saturation - - Inhaled Oxygen Concentration - - Weight - - Height - - Body Mass Index - - Plan of Treatment Health Maintenance Due Date Last Done Comments Depression Screening 1998 HIV Screening 1998 SDOH Screening 1998 Disability Screening 1998 Alcohol/Substance Use Screening 2010 Family Planning (PISQ) 2013 Hepatitis C Screening 02/03/2016 Pap Smear 2019 Hepatitis A Vaccines (2 of 2 - 2-dose series) 02/01/2024 08/03/2023, 09/14/2016 Dental Oral Exam 08/02/2024 01/30/2024, 03/2023, 11/14/2022 Dental X-Ray: Bitewings 01/30/2025 01/30/2024, 11/14 COVID-19 Vaccine ( - season) 2025 05/02/2021, 04/11/2021 Influenza Vaccine (#1) 2025 , 05/17/2021, 05/17/2021, Additional history exists Dental Prophylaxis 04/26/2025 10/24/2024, 0 01/30/2024, 11/14/2022 Tobacco Screening 10/24/2025 10/24/2024 Dental X-Ray: Full Mouth 01/30/2027 01/30/2024, 09/06 DTaP/Tdap/Td Vaccines (5 - Td or Tdap) 05/24/2033 05/24/2023, 09/14/2016, 10/14/2015, Additional history exists Zoster Vaccines (1 of 2) 02/03/2048 RSV Patients and Patients Aged 60 years or older (1 - 1-dose 75+ series) 2073 Meningococcal Vaccine Completed 08/31/2015 HPV Vaccines Completed 04/19/2021, 04/08, 10/26/2020, Additional history exists Hepatitis B Vaccines Completed 08/03/2023, 09/14/2016, 08/31/2015 HIB Vaccines Aged Out No longer eligi ble based on patient's age to complete this topic IPV Vaccines Aged Out No longer eligi ble based on patient's age to complete this topic Meningococcal B Vaccine Aged Out No l onger eligible based on patient's age to complete this topic Pneumococcal Vaccine: Pediatrics (0 to 5 Years) and At-Risk Patients (6 to 49) Years Aged Out No longer eligible based on patient's age to complete this topic RSV under 20 months Aged Out No longe r eligible based on patient's age to complete this topic Rotavirus Vaccines Aged Out No longer eligible based on patient's age to complete this topic Procedures Procedure Name Priority Date/Time Associated Diagnosis Comments PROPHYLAXIS - ADULT Routine 10/24/2024 3 :00 PM EDT Dental plaque INTRAORAL - COMPLETE SERIES OF RADIOGRAPHIC IMAGES Routine 01/30/2024 11:00 AM EDT Dental plaque PERIODIC ORAL EVALUATION - ESTABLISHED PATIENT Routine 01/30/2024 11:00 AM EDT from Last 3 Months or Most Recently Relevant to Health Maintenance Insurance DENTAL-[facility] MEDICAID LIMITED ADULT DENTAL - HSN FULL (MEDICAID)
== END 2025-04-27 14:01 | disposition home or self-care (01) ==
LOC: HO.HMCFM 09:20
PROVIDERS: PCP Nurse Practitioner Family; Visit Provider Nurse Practitioner Family
DX: F41.9 Anxiety disorder, unspecified (principal); N94.6 Dysmenorrhea, unspecified

== ENCOUNTER → 2025-04-27 09:20 | Outpatient (BNVA) | payer OTHER, SELFPAY | PROVIDERS: PCP Nurse Practitioner Family; Visit Provider Nurse Practitioner Family | DX: F41.9 Anxiety disorder, unspecified (principal); N94.6 Dysmenorrhea, unspecified; Z13.31 Encounter for screening for depression; Z13.39 Encounter for screening examination for other mental health and behavioral disorders | CPT/HCPCS: 96127; 99212 ==

== ENCOUNTER 2025-05-01 13:52 | Outpatient (REF) | payer OTHER, SELFPAY ==
[2025-05-02 03:34] LABS: Syphilis Screen Nonreactive (Nonreactive)
[2025-05-02 04:04] LABS: HBsAGNum1 0.32 S/CO (0.00-0.99); HIV Num 1 0.06 S/CO (0.00-0.99); Hepatitis B Surface Antigen Negative (Negative); ~HepC Num1 0.18 S/CO (0.00-0.79); ~Hepatitis C Antibody Nonreactive (Nonreactive)
[2025-05-02 05:17] LABS: Bacterial Vaginosis PCR NEGATIVE (Negative); Candida Group PCR DETECTED (Not Detect); Candida glab krusei PCR NOT DETECTED (Not Detect); Trichomonas vaginalis PCR NOT DETECTED (Not Detect)
[2025-05-02 05:47] LABS: CT PCR NOT DETECTED (Not Detect.); NG PCR NOT DETECTED (Not Detect.)
== END 2025-05-01 13:53 | disposition home or self-care (01) ==
LOC: HO.LAB 13:52
PROVIDERS: PCP Nurse Practitioner Family; Visit Provider Advanced Practice Midwife
DX: Z01.419 Encounter for gynecological examination (general) (routine) without abnormal findings (principal); Z00.00 Encounter for general adult medical examination without abnormal findings; Z20.2 Contact with and (suspected) exposure to infections with a predominantly sexual mode of transmission; Z30.09 Encounter for other general counseling and advice on contraception; Z11.4 Encounter for screening for human immunodeficiency virus [HIV]; Z11.59 Encounter for screening for other viral diseases; L30.9 Dermatitis, unspecified
CPT/HCPCS: 36415; 81515; 86780; 86803; 87340; 87389; 87491; 87591; 88175; 99385

== ENCOUNTER 2025-05-01 13:52 | Outpatient (AMB) | payer OTHER, SELFPAY ==
--- NOTE | 2025-05-01 14:02 | MHC.OFFVIS ---
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 annual exam Intake Note: here for Television Picture Tube Rebuilder annual Emergency Communications Dispatcher Required: Yes Emergency Communications Dispatcher Services: Emergency Communications Dispatcher Present (voice machine) Information Interpreted: non-clinical & clinical Spice Cleaner: Spice Cleaner Present (gracia) Accompanied by: Self / Same As Patient Allergies No Known Allergies Allergy (Verified 05/01/25 14:05) Medication List - Last Reconciled 05/01/25 by Verito Talbert LPN hydroxyzine HCl 25 mg PO TID PRN Is last menstrual period known: Yes Last menstrual period: 04/23/25 Do you need a note to return to daycare/school/sports/work: No HPI HPI OPERATIONS REPRESENTATIVE annual exam: Details: 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 She is not currently sexually active and if she became sexually active she would go back to using the NuvaRing which she liked and worked well for her. The last time she had sex with someone was about 6 months ago and it was a little bit uncomfortable and that had not happen before she is no longer with that person an that was a new relationship at the time. Also she has had some itching on her nipples the left 1 and when she scratches it then she ends up with a rash. She does not think she has high blood sugar as far she knows her parents are diabetic. She knows she has high cholesterol. She says her periods are irregular sometimes they come on different dates but she does not actually keep track on a calendar. 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 Current occupational exposures/hazards: No Cognitive needs: No Hearing needs: No Vision needs: No Female Reproductive History Menstrual Age of Menarche: 11 Date of last menstrual period: 04/23/25 control method: abstinence Total pregnancies: 0 Number of Living Children: 0 Physical Exam Vital Signs: Last Vital Signs BP 112/64 05/01/25 14:08 BMI result Body Mass Index 24.8 Const General: healthy appearing, comfortable, no acute distress, well developed and alert Nutritional Appearance: average body habitus Orientation/consciousness: patient oriented x3 Limitations: no limitations HEENT Head: Yes normocephalic Neck Neck: Yes normal visual inspection Chest Other: Normal exam of breasts and nipples no peau d'orange no rash no breaks in the skin or discolorations notable in either nipple. Chest palpation & inspection: normal inspection of the chest Breast/axilla inspection: normal inspection of the breasts and normal inspection of the axillae Breast/axilla palpation: normal palpation of the breasts and normal palpation of the axillae Resp Effort & Inspection: normal respiratory effort GI Inspection: Yes normal to inspection, No Abdominal wall edema and No distended Palpation (GI): Soft to palpation and nontender Other: Vagina is pink and moist normal-appearing scant white mucus cervix nulliparous pink smooth slightly friable with Pap Pap and testing done for infection. Cervix long close thick mobile nontender uterus midposition nontender was not able to reproduce the discomfort that she described with dyspareunia some 6 months ago. Adnexa not enlarged and nontender very good muscle tone. General: Yes bladder normal to palpation External Female Exam: normal external appearance and normal appearance of the urethra Speculum Exam - Vagina: normal appearance of the vagina, normal palpation and normal vaginal discharge Speculum Exam - Cervix: normal appearance of the cervix, normal palpation and nontender Bimanual exam- vagina & uterus: normal bimanual exam, normal palpation, uterine size normal, bladder normal to palpation, consistency normal, normal palpation, uterine mobility normal, uterine shape normal, No Cervical tenderness present, non-tender and no cervical motion tenderness Bimanual Exam- Adnexa, other: normal adnexae, no masses, normal and No adnexal tenderness Neuro General: patient oriented x3 Assessment & Plan Assessment & Plan (1) Pap smear for cervical cancer screening: Code(s): Z12.4 - Encounter for screening for malignant neoplasm of cervix Category: Medical (2) Well woman exam with routine gynecological exam: Code(s): Z01.419 - Encounter for gynecological examination (general) (routine) without abnormal findings Category: Medical (3) Nipple dermatitis: Comment: No visible issue today will offer treatment with Lotrisone cream to be used sparingly if itching recurs and if it is not helpful to seek another visit for follow-up. Code(s): L30.9 - Dermatitis, unspecified Category: Medical (4) control counseling: Comment: We will Rx NuvaRing that she may start at the beginning of a menses if she anticipates becoming sexually active.... Code(s): Z30.09 - Encounter for other general counseling and advice on contraception Category: Medical (5) Screen for sexually transmitted diseases: Code(s): Z11.3 - Encounter for screening for infections with a predominantly sexual mode of transmission Category: Medical Plan -----Discussed in this visit the following: healthy balanced diet, regular and consistent exercise, getting recommended health screens, doing the best she can for her particular health concerns, kegel exercises, pap smear screening and followup recommendations, mammography screening and SBE, normal changes in cycles in her life stage--- . She would like the ring that she could start if she did become sexually active. She does not plan to start it right now but it would be good for her to have it on hand so I am prescribing enough for her year for her as she has used it successfully in the past. My instructions would be for her to start it at the beginning of a period within the 1st 3 days. She is a nonsmoker and is otherwise healthy I am also ordering testing for her to get blood work for STIs screening which she is interested in. I also gave her information about the portal so she can look up her own results we will send her a letter about the Pap smear. For the itching and a her nipple I do not see any evidence of a rash or discharge or pathology. Just given the wrinkled nature of her nipples it is certainly possible that perhaps some microscopic yeast could be harboring within the crevices and folds of the skin at the nipple. It is not even very symptomatic at the present moment but I sending a prescription for 1 tube of Lotrisone cream combination antifungal and steroid cream to use extremely sparingly if needed up to twice a day but not for a long time at all and she may save that for another situation as well. Orders: Orders CT NG by PCR Vag/Cerv Today Z01.419 - Encounter for gynecological examination (general) (routine) without abnormal findings, Z11.3 - Encounter for screening for infections with a predominantly sexual mode of transmission, Z12.4 - Encounter for screening for malignant neoplasm of cervix, Z30.09 - Encounter for other general counseling and advice on contraception Bacterial Vaginosis Panel Today Z01.419 - Encounter for gynecological examination (general) (routine) without abnormal findings, Z11.3 - Encounter for screening for infections with a predominantly sexual mode of transmission, Z12.4 - Encounter for screening for malignant neoplasm of cervix, Z30.09 - Encounter for other general counseling and advice on contraception HIV Ab/Ag Today Z01.419 - Encounter for gynecological examination (general) (routine) without abnormal findings, Z11.3 - Encounter for screening for infections with a predominantly sexual mode of transmission, Z12.4 - Encounter for screening for malignant neoplasm of cervix, Z30.09 - Encounter for other general counseling and advice on contraception Hepatitis B Surface Antigen Today Z01.419 - Encounter for gynecological examination (general) (routine) without abnormal findings, Z11.3 - Encounter for screening for infections with a predominantly sexual mode of transmission, Z12.4 - Encounter for screening for malignant neoplasm of cervix, Z30.09 - Encounter for other general counseling and advice on contraception Syphilis Screen Today Z01.419 - Encounter for gynecological examination (general) (routine) without abnormal findings, Z11.3 - Encounter for screening for infections with a predominantly sexual mode of transmission, Z12.4 - Encounter for screening for malignant neoplasm of cervix, Z30.09 - Encounter for other general counseling and advice on contraception Pap Smear Today Z00.00 - Encounter for general adult medical examination without abnormal findings Hepatitis C Antibody Today Z01.419 - Encounter for gynecological examination (general) (routine) without abnormal findings, Z11.3 - Encounter for screening for infections with a predominantly sexual mode of transmission, Z12.4 - Encounter for screening for malignant neoplasm of cervix, Z30.09 - Encounter for other general counseling and advice on contraception Medications: New etonogestrel-ethinyl estradiol 0.12-0.015 mg/24 hr Start at the beginning of a menses, leave in place for 3 weeks of a 4-week cycle 1 vag ring vaginal Q4W 3 ea 4RF clotrimazole-betamethasone 1-0.05 % 1 appl topical BID 45 grams 0RF 2 weeks Coding Level of Care Code New Pt Prev Care 18-39yr(01110 Diagnoses Pap smear for cervical cancer screening Z12.4 Well woman exam with routine gynecological exam Z01.419 Nipple dermatitis L30.9 control counseling Z30.09 Screen for sexually transmitted diseases Z11.3
[2025-05-01 14:08] VITALS: BP 112/64; BMI 24.8
--- OUTSIDE RECORDS SUMMARY | 2025-05-01 15:53 | XMS_ITS | Encounter Summary ---
Author Organization [employer] Address [address] [place] [address] [address] [place] [address] Care Team Providers Care Oil Well Gun Perforator Operator Name Role Phone Unavailable Primary Care Provider Unavailabl e Encounter Details Date Type Department Care Team (Latest Contact Info) Description 12/06/2018 Abstract [facility] CONVERSIONS Dental, Provider, DDS Social History [...]
--- OUTSIDE RECORDS SUMMARY | 2025-05-01 15:53 | XMS_ITS | Clinical Summary ---
Author Organization [employer] Address [address] [place] [address] [address] [place] [address] Care Team Providers Care Casing Man Name Role Phone Unavailable Primary Care Provider [...] Most Recently Relevant to Health Maintenance Insurance D[facility]AL-[facility] MEDICAID LIMITED ADULT DENTAL - HSN FULL (MEDICAID)
--- OUTSIDE RECORDS SUMMARY | 2025-05-01 15:53 | XMS_ITS | Encounter Summary ---
Author Organization [employer] Address [address] [place] [address] 7 [place] [address] Care Team Providers Care Paper Wood Cutter Name Role Phone Unavailable Primary Care Provider Unavailabl e Encounter Details Date Type Department Care Team (Latest Contact Info) Description 07/14/2020 Abstract [facility] CONVERSIONS Dental, Provider, DDS Social History [...]
--- OUTSIDE RECORDS SUMMARY | 2025-05-01 15:53 | XMS_ITS | Encounter Summary ---
Author Organization [employer] Address [address] [facility] 7t [place] [address] Care Team Providers Care Organizational Effectiveness Director Name Role Phone Unavailable Primary Care Provider Unavailabl e Encounter Details Date Type Department Care Team (Late st Contact Info) Description 07/17/2022 Abstract [facility] [address] [place] [address] Henrique Mcguire, PAUL Social History Tobacco Use [...]
== END 2025-05-01 15:17 | disposition home or self-care (01) ==
LOC: HO.HWS 13:53
PROVIDERS: PCP Nurse Practitioner Family; Visit Provider Advanced Practice Midwife
DX: Z01.419 Encounter for gynecological examination (general) (routine) without abnormal findings (principal); L30.9 Dermatitis, unspecified; Z30.09 Encounter for other general counseling and advice on contraception; Z11.3 Encounter for screening for infections with a predominantly sexual mode of transmission
CPT/HCPCS: 99385; 99459

== ENCOUNTER 2025-06-02 08:00 | Outpatient (AMB) | payer OTHER, SELFPAY ==
--- OUTSIDE RECORDS SUMMARY | 2025-06-02 08:13 | XMS_ITS | Encounter Summary ---
Author Organization [employer] Address [address] [facility] 7t [place] [address] Care Team Providers Care Geospatial Engineer Name Role Phone Unavailable Primary Care Provider Unavailabl e Encounter Details Date Type Department Care Team (Late st Contact Info) Description 07/17/2022 Abstract [facility] [address] [place] [address] Henrique Mcguire, PAUL Social History Tobacco Use [...]
--- OUTSIDE RECORDS SUMMARY | 2025-06-02 08:13 | XMS_ITS | Encounter Summary ---
Author Organization [employer] Address [address] [place] [address] 7 [place] [address] Care Team Providers Care Electrical Line Splicer Name Role Phone Unavailable Primary Care Provider Unavailabl e Encounter Details Date Type Department Care Team (Latest Contact Info) Description 12/06/2018 Abstract [facility] CONVERSIONS Dental, Provider, DDS Social History [...]
--- OUTSIDE RECORDS SUMMARY | 2025-06-02 08:13 | XMS_ITS | Encounter Summary ---
Author Organization [employer] Address [address] [place] [address] [address] [place] [address] Care Team Providers Care In Store Demonstrator Name Role Phone Unavailable Primary Care Provider Unavailabl e Encounter Details Date Type Department Care Team (Latest Contact Info) Description 07/14/2020 Abstract [facility] CONVERSIONS Dental, Provider, DDS Social History [...]
--- OUTSIDE RECORDS SUMMARY | 2025-06-02 08:13 | XMS_ITS | Clinical Summary ---
Author Organization [employer] Address [address] [place] [address] [address] [place] [address] Care Team Providers Care Financial Cost Analyst Name Role Phone Unavailable Primary Care Provider [...] Most Recently Relevant to Health Maintenance Insurance DENTAL-[facility] MEDICAID LIMITED ADULT DENTAL - HSN FULL (MEDICAID)
--- NOTE | 2025-06-02 08:16 | A.OFFVIS_ITS ---
Vital Signs 06/02/25 08:32 Height 5 ft Weight 122 lb BMI 23.8 BP 114/60 Intake Visit Reasons: Colposcopy Waste Reduction Coordinator Required: Yes Waste Reduction Coordinator Language: Media Relations Associate Services: Waste Reduction Coordinator Present (in person) Waste Reduction Coordinator Name: Charity ECHOLS Information Interpreted: non-clinical & clinical Self Sealing Fuel Tank Builder: Self Sealing Fuel Tank Builder Present (Charity ECHOLS) Allergies No Known Allergies Allergy (Verified 06/02/25 08:34) Is last menstrual period known: Yes HPI Comments Details: Presenting for colposcopy for the following abnormal Pap showing: General Category: Epithelial cell abnormality. Adequacy: Endocervical component present. Interpretation: Low grade squamous intraepithelial lesion (LSIL) PFSH Family History Mother Diabetes Sister Diabetes Other Substance abuse Social History Household Members: Family Housing: House Patient Tobacco Use Status: Never used Tobacco e-Cigarette/Vaping Use: Never Used Second Hand Smoke Exposure: No service: No Current occupational status: employed Current occupation: [employer] Current occupational exposures/hazards: No Sexually active: No Sexual orientation: Straight/Heterosexual Gender identity: Female Cognitive needs: No Hearing needs: No Vision needs: No Female Reproductive History Menstrual Age of Menarche: 11 Review of Systems Const All systems reviewed & are unremarkable except as noted in HPI and below Reports as per HPI and Reports no additional complaints GI Reports no additional complaints Reports no additional complaints Physical Exam Vital Signs: Last Vital Signs BP 114/60 06/02/25 08:32 BMI result Body Mass Index 23.8 Office Procedures Colposcopy Colposcopy: Pre-Procedure Counseling: Before beginning the procedure, I conducted comprehensive counseling with the patient. We thoroughly discussed the procedure itself, including its details, alternatives, and all associated risks. This included but not limited to the following complications such as bleeding, infection, and injury to the vagina, bladder, and vessels, as well as the potential need for transfusion with all its associated risks. Subsequently, the patient sign the consent. Pap smear result: LSIL. Urine test in office = Negative Procedure: During the procedure, the following steps were performed: A speculum was inserted, and acetic acid was applied. Colposcopy was conducted, allowing visualization of the transformation zone. Acetowhite lesions were identified at the 6+ 11+ 12+ 1 o'clock position. Cervical biopsies were obtained from the 6+ 11+ 12+ 1 o'clock position, followed by an endocervical curettage (ECC). Vaginoscopy of the upper vagina revealed no evidence of aceto-white lesions. Hemostasis was achieved using Monsel solution, and the patient tolerated the procedure well. Post-Procedure Instructions: The patient was advised to promptly contact the office or the after hours answering service or go to the emergency room if experiencing a temperature exceeding 100.4?F, abdominal pain, nausea/vomiting, or bleeding. Additionally, the patient was instructed to abstain from vaginal intercourse and bathtub use. The patient confirmed understanding of these instructions. Discharge Instructions: The patient was instructed to schedule a follow-up appointment in 2 weeks for further evaluation and management. Please note that this note was generated using a voice recognition program, and errors may have occurred during fan blade aligner. [id number] of cervix including upper vagina with biopsy and ECC Procedure code (CPT) selection complete Results AMB Test Urine AMB Test Urine Negative Last Edit by Charity Rios CMA on 08:42 Assessment & Plan Assessment & Plan (1) LGSIL on Pap smear of cervix: Code(s): R87.612 - Low grade squamous intraepithelial lesion on cytologic smear of cervix (LGSIL) Category: Medical Plan: Discussed with the patient the result of her abnormal pap, its significance, risk of progression, persistence, and regression. the false positive/negative rate of a Pap smear as a screening test in detecting cervical cancer and the indication for a diagnostic test -colposcopy, biopsy, endocervical curettage. The patient verbalized understanding and agreed with the plan, all questions answered. Colposcopy, biopsy /ECC done, see procedure note Orders: Orders AMB HCG Urine Test Today Z32.02 - Encounter for test, result negative AMB Colposcopy Today R87.612 - Low grade squamous intraepithelial lesion on cytologic smear of cervix (LGSIL) Coding Level of Care Code Procedure Only Diagnoses LGSIL on Pap smear of cervix R87.612 CPT Codes Colposcopy - CPT: 55364-[id number] of cervix including upper vagina with biopsy and ECC ([id number])
[2025-06-02 08:32] VITALS: BP 114/60; BMI 23.8
== END 2025-06-02 08:58 | disposition home or self-care (01) ==
LOC: HO.HWS 08:01
PROVIDERS: PCP Nurse Practitioner Family; Visit Provider Obstetrics & Gynecology
DX: R87.612 Low grade squamous intraepithelial lesion on cytologic smear of cervix (LGSIL) (principal); Z32.02 Encounter for pregnancy test, result negative
CPT/HCPCS: 57454

== ENCOUNTER 2025-06-02 08:00 | Outpatient (REF) | payer OTHER, SELFPAY | END 2025-06-02 08:01 | disposition home or self-care (01) | LOC: HO.LNP 08:00 | PROVIDERS: PCP Nurse Practitioner Family; Visit Provider Obstetrics & Gynecology | DX: R87.612 Low grade squamous intraepithelial lesion on cytologic smear of cervix (LGSIL) (principal); Z32.02 Encounter for pregnancy test, result negative | CPT/HCPCS: 57454; 81025; 88305 ==

== ENCOUNTER 2025-06-24 09:04 | Outpatient (AMB) | payer OTHER, SELFPAY ==
--- NOTE | 2025-06-24 09:06 | A.OFFVIS_ITS ---
Vital Signs 06/24/25 09:10 Height 5 ft Weight 123 lb BMI 24.0 BP 102/62 Intake Visit Reasons: Colpo Results Food Service Counter Clerk Required: Yes Food Service Counter Clerk Language: Drafter Electromechanical Services: Food Service Counter Clerk Present (in person) Food Service Counter Clerk Name: Charity ECHOLS Information Interpreted: non-clinical & clinical Accompanied by: Self / Same As Patient Allergies No Known Allergies Allergy (Verified 06/24/25 09:11) Is last menstrual period known: Yes Last menstrual period: 06/15/25 HPI Comments Details: Presenting post colpo for follow-up. The patient is doing well with no complaints. The pathology showed the following: A. Endocervix, curettage: Endocervical mucosa within normal limits. B. Cervix, 1 o'clock, biopsy: - Low-grade squamous intraepithelial lesion (JUAN 1). - Background inflamed cervical transformation zone mucosa. C. Cervix, 6 o'clock, biopsy: Mildly inflamed cervical transformation zone mucosa with reactive changes. D. Cervix, 11 o'clock, biopsy: Squamous mucosa and rare endocervical epithelium within normal limits. E. Cervix, 12 o'clock, biopsy: - Low-grade squamous intraepithelial lesion (JUAN 1). - Background inflamed cervical transformation zone mucosa. COMMENT: The findings are concordant with the patient's recent Pap/cytology specimen ([id number]; [facility]) - slide reviewed [facility] Family History Mother Diabetes Sister Diabetes Other Substance abuse Social History Household Members: Family Housing: House Patient Tobacco Use Status: Never used Tobacco e-Cigarette/Vaping Use: Never Used Second Hand Smoke Exposure: No service: No Current occupational status: employed Current occupation: [employer] Current occupational exposures/hazards: No Sexual orientation: Straight/Heterosexual Gender identity: Female Cognitive needs: No Hearing needs: No Vision needs: No Female Reproductive History Menstrual Age of Menarche: 11 Date of last menstrual period: 06/15/25 Review of Systems Const All systems reviewed & are unremarkable except as noted in HPI and below Reports as per HPI and Reports no additional complaints GI Reports no additional complaints Reports no additional complaints Physical Exam Vital Signs: Last Vital Signs BP 102/62 06/24/25 09:10 BMI result Body Mass Index 24.0 Assessment & Plan Assessment & Plan (1) Dysplasia of cervix, low grade (JUAN 1): Code(s): N87.0 - Mild cervical dysplasia Category: Medical Plan: Discussed with the patient the pathology results of the colposcopy biopsies & endocervical curettage ( mild dysplasia-JUAN 1). Discussed with the patient the sensitivity specificity, positive and negative predictive value in detecting cervical cancer in addition discussed the regression, persistence and pro gression rates. Recommended co-testing in 12 months, if cytology and or HPV are abnormal will proceed was colposcopy biopsy and endocervical curettage, if lesions gets worse or stays persistent for 2 years will proceed with loop electric excision procedure. Instructions given to the patient to schedule a co test appointment in 1 year. All questions answered the patient verbalized understanding. Coding Level of Care Code Est Pt Level 3 (26339) Diagnoses Dysplasia of cervix, low grade (JUAN 1) N87.0
[2025-06-24 09:10] VITALS: BP 102/62; BMI 24.0
--- OUTSIDE RECORDS SUMMARY | 2025-06-24 09:56 | XMS_ITS | Encounter Summary ---
Author Organization [employer] Address [address] [place] [address] Care Team Providers Care Project Engineering Manager Name Role Phone Unavailable Primary Care Provider Unavailabl e Encounter Details Date Type Department Care Team (Latest Contact Info) Description 07/14/2020 Abstract [facility] CONVERSIONS Dental, Provider, DDS Social History [...]
--- OUTSIDE RECORDS SUMMARY | 2025-06-24 09:56 | XMS_ITS | Encounter Summary ---
Author Organization [employer] Address [address] [place] [address] Care Team Providers Care Well Cleaner Name Role Phone Unavailable Primary Care Provider Unavailabl e Encounter Details Date Type Department Care Team (Late st Contact Info) Description 07/17/2022 Abstract [facility] [address] [place] [address] Henrique Mcguire, PAUL Social History Tobacco Use [...]
--- OUTSIDE RECORDS SUMMARY | 2025-06-24 09:56 | XMS_ITS | Encounter Summary ---
Author Organization [employer] Address [address] [place] [address] [address] [place] [address] Care Team Providers Care Sorting Livestock Worker Name Role Phone Unavailable Primary Care Provider Unavailabl e Encounter Details Date Type Department Care Team (Latest Contact Info) Description 12/06/2018 Abstract [facility] CONVERSIONS Dental, Provider, DDS Social History Tobacco [...]
--- OUTSIDE RECORDS SUMMARY | 2025-06-24 09:56 | XMS_ITS | Clinical Summary ---
Author Organization [email or web address] Address [address] [place] [address] [address] [place] [address] Care Team Providers Care Drafter Civil Engineering Name Role Phone Unavailable Primary Care Provider [...] Most Recently Relevant to Health Maintenance Insurance DENTAL-[facility] MEDICAID LIMITED ADULT DENTAL - HSN FULL (MEDICAID)
== END 2025-06-24 09:37 | disposition home or self-care (01) ==
LOC: HO.HWS 09:05
PROVIDERS: PCP Nurse Practitioner Family; Visit Provider Obstetrics & Gynecology
DX: N87.0 Mild cervical dysplasia (principal)
CPT/HCPCS: 99213

== ENCOUNTER → 2025-06-24 09:04 | Outpatient (BNVA) | payer OTHER, SELFPAY | PROVIDERS: PCP Nurse Practitioner Family; Visit Provider Obstetrics & Gynecology | DX: N87.0 Mild cervical dysplasia (principal) | CPT/HCPCS: 99212 ==